=== PATIENT | male | born 2005 | race Caucasian/White ===

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

== ENCOUNTER 2024-06-03 15:11 | Emergency (ER) | payer MEDICAID, OTHER ==
[~2024-06-03] VITALS: Ht 182.9 cm; Wt 72.6 kg
[~2024-06-03 15:11] MED LIST: NAPR-1164 PO
[2024-06-03 18:18] VITALS: BP 134/72; O2SAT 98
== END 2024-06-03 18:18 | disposition home or self-care (01) ==
LOC: ER 15:11
DX: S61.012A Laceration without foreign body of left thumb without damage to nail, initial encounter (principal); Z88.7 Allergy status to serum and vaccine; W26.0XXA Contact with knife, initial encounter; Y93.89 Activity, other specified; Y92.89 Other specified places as the place of occurrence of the external cause; Y99.8 Other external cause status
CPT/HCPCS: A4606; A4663

== ENCOUNTER 2024-06-18 22:15 | Emergency (ER) | payer MEDICAID ==
[~2024-06-18] VITALS: Ht 182.9 cm; Wt 72.6 kg
[2024-06-18 23:40] VITALS: BP 120/78; TEMP 98; O2SAT 98
== END 2024-06-18 23:41 | disposition home or self-care (01) ==
LOC: ER 22:15
DX: S61.012D Laceration without foreign body of left thumb without damage to nail, subsequent encounter (principal); Z88.7 Allergy status to serum and vaccine; X58.XXXD Exposure to other specified factors, subsequent encounter
CPT/HCPCS: A4606; A4663

== ENCOUNTER 2024-09-12 23:56 | Emergency (ER) | payer MEDICAID, OTHER ==
[~2024-09-12] VITALS: Ht 182.9 cm; Wt 76.2 kg
[2024-09-13] MEDS: NAPROXEN 500 MG TABLET PO ONE (00:37)
[2024-09-13] MEDS: CYCLOBENZAPRINE HCL 10 MG TABLET PO ONE (00:44)
[2024-09-13] MEDS ORDERED: NAPR-1009 PO (00:55)
[2024-09-13] MEDS ORDERED: CYCL10TA9 PO (00:55)
[2024-09-13 01:13] VITALS: BP 114/60; O2SAT 100
[2024-09-14] MEDS ORDERED: PANTOPRAZOLE SODIUM 40 MG VIAL ONE (10:07)
== END 2024-09-13 01:15 | disposition home or self-care (01) ==
LOC: ER 09-13 00:02
DX: S39.012A Strain of muscle, fascia and tendon of lower back, initial encounter (principal); S30.0XXA Contusion of lower back and pelvis, initial encounter; S40.021A Contusion of right upper arm, initial encounter; S00.432A Contusion of left ear, initial encounter; S70.12XA Contusion of left thigh, initial encounter; Z88.7 Allergy status to serum and vaccine; V43.52XA Car driver injured in collision with other type car in traffic accident, initial encounter; Y93.89 Activity, other specified; Y92.488 Other paved roadways as the place of occurrence of the external cause; Y99.8 Other external cause status
CPT/HCPCS: 72072; 72100; A4606; A4663; J2470